=== PATIENT | female | born 1990 | race Caucasian/White ===

== ENCOUNTER 2016-11-08 23:58 | Emergency (ER) | payer OTHER ==
--- NOTE | ~2016-11-08 | CR173 ---
[facility] A Service of [facility] & [facility] RADIOLOGY TEXT RESULTS PATIENT: NICHOL PINTO LOCATION: [facility]FT[facility] : [birth year] UNIT #: [id number] AGE: [address]: ALEX MILLS APRN SEX: F ORDER DR: [id number] [facility] [address] [place], [place] [address] [id number] E MR#: [id number] Acc #: [id number] NAME: NICHOL PINTO : 1990 SEX: F STUDY DATE/TIME: 11/09/2016 0:56 UNIT: CFTX ROOM: STUDY DESCRIPTION: CR Knee 3 Views Rt Attending Physician: Alex Mills Aprn Ordering Physician: Garland Kumar, [id number] Primary Care Physician: Primary Care Physician No MEDICAL IMAGING REPORT This report is preliminary unless electronic signature is present EXAM Right knee, 3 views COMPARISON 2 views of the right tibia-fibula on the same date. INDICATIONS 26-year-old female with right knee pain and inability to bear weight since falling last night. FINDINGS Bones are anatomically aligned. There is incidental note a fabella. There is no suprapatellar effusion. No evidence of acute fracture. Benign bone island of proximal tibial shaft. IMPRESSION No acute fracture, dislocation, suprapatellar effusion or significant degenerative change. Dictated by... Denver Sanchez M.D. THIS IS AN ELECTRONICALLY VERIFIED REPORT Denver Sanchez M.D. at 11/12/2016 9:23 PM Naren TD: 11/09/2016 09:25 JOB #: [id number] MEDICAL IMAGING REPORT COPY
--- NOTE | ~2016-11-08 | CR253 ---
[facility] A Service of [facility] RADIOLOGY TEXT RESULTS PATIENT: NICHOL PINTO LOCATION: [facility] : [birth year] UNIT #: [id number] AGE: [address]: ALEX MILLS APRN SEX: F ORDER DR: [id number] [facility]. [place], [place] [address] [id number] E MR#: [id number] Acc #: [id number] NAME: NICHOL PINTO : 1990 SEX: F STUDY DATE/TIME: 11/09/2016 1:31 UNIT: CFTX ROOM: STUDY DESCRIPTION: CR Tibia and Fibula 2 Views Rt Attending Physician: Alex Mills Aprn Ordering Physician: Alex Mills Aprn Primary Care Physician: No Primary Care Physician MEDICAL IMAGING REPORT This report is preliminary unless electronic signature is present EXAM Right tibia and fibula, 2 views. COMPARISON Radiographs of the right ankle date October 31, 2011. INDICATION 26-year-old female with below the knee right leg and ankle pain after falling last night. FINDINGS Chronic ossicles seen inferior to the lateral malleolus. There are anterior and posterior osteophytes of the distal tibia with osteophyte formation of the dorsal talar neck. There is minimal enthesopathy at the Achilles insertion of the calcaneus. There is joint space narrowing at the tibiotalar articulation. Fracture fixation screws traverse the medial malleolus and there is a fracture fixation plate with interlocking screws of the distal fibula. No evidence of hardware complication. There is no evidence of dislocation or acute bony fracture. Benign bone island is seen in the proximal tibia. IMPRESSION No acute fracture or dislocation. 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 Surgical hardware is seen in the distal tibia and fibula without evidence of complication. Dictated by... Denver Sanchez M.D. THIS IS AN ELECTRONICALLY VERIFIED REPORT [facility] A Service of [facility] RADIOLOGY TEXT RESULTS PATIENT: NICHOL PINTO LOCATION: [facility] : 89 UNIT #: [id number] AGE: [address]: ALEX MILLS APRN SEX: F ORDER DR: Denver Sanchez M.D. at 11/12/2016 9:25 PM MICHELLE/neida TD: 11/09/2016 09:39 JOB #: [id number] MEDICAL IMAGING REPORT COPY
[~2016-11-08 23:58] MED LIST: ALBUTEROL17 GM INH; AZITHROMYCIN250 MG PO; CIPRO PO; ERYC250 MG PO; FLAGYL PO; ORUDIS75 M1 PO; PHENERGAN PO; PHENERGAN25 M1 PO; ULTRAM PO
== END 2016-11-09 03:10 | disposition home or self-care (01) ==
LOC: CFTX 23:58
DX: S80.01XA Contusion of right knee, initial encounter (principal); I10 Essential (primary) hypertension; J45.909 Unspecified asthma, uncomplicated; Z88.0 Allergy status to penicillin; F17.210 Nicotine dependence, cigarettes, uncomplicated; W18.30XA Fall on same level, unspecified, initial encounter; Y92.009 Unspecified place in unspecified non-institutional (private) residence as the place of occurrence of the external cause
CPT/HCPCS: 73562; 73590; 99284